=== PATIENT | male | born 1945 | race Caucasian/White ===

== ENCOUNTER 2017-04-07 10:20 | Emergency (ER) | payer OTHER, MEDICARE ==
[2017-04-07 10:28] VITALS: TEMP 98.4
--- NOTE | 2017-04-07 10:46 | EDPHY ---
H & P Time Seen by Provider: 04/07/17 10:31 HPI/ROS: CHIEF COMPLAINT: Cough x3-4 weeks, chest pain onset last night HISTORY OF PRESENT ILLNESS: This is a 71-year-old male presenting to the emergency department complaining of cough times 3-4 weeks intermittent fevers, fever this morning 101.2 did take some ibuprofen resolve the fever. Patient reports intermittent chest pain with deep inspiration yesterday around noon lasting until last night patient went to bed woke up around [id number] then started coughing and having intermittent chest pain with deep inspiration radiating from right side to left side. Patient does report cough is intermittently productive clear. Nonsmoker history of hypertension. Denies any history of [place] or CVA REVIEW OF SYSTEMS: Constitutional: Intermittent fever resolved with ibuprofen no chills. Eyes: No discharge. No blurred vision ENT: No sore throat. Cardiovascular: Intermittent chest wall pain, no palpitations. Respiratory: cough x 3-4 intermittently productive, no shortness of breath. Gastrointestinal: No abdominal pain, no vomiting. Genitourinary: No hematuria. Musculoskeletal: No back pain. Skin: No rashes. Neurological: No headache. Smoking Status: Never smoked Physical Exam: General Appearance: Alert, no distress. HEENT: Normocephalic atraumatic. Pupils equal and round no pallor or injection. Mucous membranes moist. TMs normal bilaterally Respiratory: There are no retractions, lungs clear bilaterally positive cough on exam Cardiovascular: Regular rate and rhythm. Left anterior right anterior chest wall pain on palpation Gastrointestinal: Abdomen is soft and nontender, no masses, bowel sounds normal. Neurological: No focal deficits. All Cranial nerves intact. Answering questions appropriately Skin: Warm and dry, no rashes. Musculoskeletal: Neck is supple nontender. Extremities: symmetrical, full range of motion. Psychiatric: Patient is oriented X 3, there is no agitation. Acting appropriately Constitutional: Initial Vital Signs Temperature (C) 36.9 C 04/07/17 10:23 Heart Rate 99 04/07/17 10:23 Respiratory Rate 20 04/07/17 10:23 Blood Pressure 151/89 H 04/07/17 10:23 O2 Sat (%) 95 04/07/17 10:23 O2 Delivery Mode Room Air Allergies/Adverse Reactions: No Known Allergies Allergy (Unverified 04/07/17 10:29) Home Medications: Medication Instructions Recorded AZITHROMYCIN [Z-PACK] 250 mg PO DAILY #6 tab 04/07/17 Albuterol [Ventolin Hfa Inhaler] 200 puffs IH Q4 #1 mdi 04/07/17 Diovan 04/07/17 predniSONE 40 mg PO DAILY #10 tab 04/07/17 Medical Decision Making - Diagnostics Imaging Results: Imaging Impressions Chest X-Ray 04/07/17 10:42 Impression: Stable negative chest. ED Course/Re-evaluation: Discussed ED plan of care: CBC, BMP, troponin, EKG, chest x-ray 1130: Discussed all results with patient, chest x-ray no acute findings pneumonia. Discharge home---> stable, discussed discharge instructions with patient Differential Diagnosis: Other differential diagnosis considered but not limited to pneumonia, pleural effusion, abnormal EKG and sepsis - Data Points Laboratory Results: Laboratory Results 04/07/17 10:47 04/07/17 10:47 04/07/17 04/07/17 10:47 10:47 WBC 13.13 10^3/uL H 10^3/uL (3.80-9.50) RBC 4.80 10^6/uL 10^6/uL (4.40-6.38) Hgb 15.0 g/dL g/dL (13.7-17.5) Hct 43.7 % % (40.0-51.0) MCV 91.0 fL fL (81.5-99.8) MCH 31.3 pg pg (27.9-34.1) MCHC 34.3 g/dL g/dL (32.4-36.7) RDW 12.0 % % (11.5-15.2) Plt Count 230 10^3/uL 10^3/uL (150-400) MPV 8.7 fL fL (8.7-11.7) Neut % (Auto) 78.2 % H % (39.3-74.2) Lymph % (Auto) 9.7 % L % (15.0-45.0) [place] % (Auto) 11.1 % % (4.5-13.0) Eos % (Auto) 0.2 % L % (0.6-7.6) Baso % (Auto) 0.4 % % (0.3-1.7) Nucleat RBC Rel Count 0.0 % % (0.0-0.2) Absolute Neuts (auto) 10.27 10^3/uL H 10^3/uL (1.70-6.50) Absolute Lymphs (auto) 1.28 10^3/uL 10^3/uL (1.00-3.00) Absolute Monos (auto) 1.46 10^3/uL H 10^3/uL (0.30-0.80) Absolute Eos (auto) 0.02 10^3/uL L 10^3/uL (0.03-0.40) Absolute Basos (auto) 0.05 10^3/uL 10^3/uL (0.02-0.10) Absolute Nucleated RBC 0.00 10^3/uL 10^3/uL (0-0.01) Immature Gran % 0.4 % % (0.0-1.1) Immature Gran # 0.05 10^3/uL 10^3/uL (0.00-0.10) Sodium 140 mEq/L mEq/L (134-144) Potassium 4.3 mEq/L mEq/L (3.5-5.2) Chloride 105 mEq/L mEq/L (97-110) Carbon Dioxide 21 mEq/l L mEq/l (22-31) Anion Gap 14 mEq/L mEq/L (8-16) BUN 21 mg/dL mg/dL (7-23) Creatinine 1.0 mg/dL mg/dL (0.7-1.3) Estimated GFR > 60 Glucose 184 mg/dL H mg/dL (70-100) Calcium 9.2 mg/dL mg/dL (8.5-10.4) Troponin I < 0.012 ng/mL ng/mL (0-0.034) Medications Given: Discontinued Medications Azithromycin (Zithromax) 500 mg PO EDNOW ONE PRN Reason: Protocol Stop: 04/07/17 11:52 Last Admin: 04/07/17 12:14 Dose: 500 mg Departure - Departure Disposition: Home, Routine, Self-Care Clinical Impression: Acute bronchitis Qualifiers: Bronchitis organism: other organism Qualified Code(s): J20.8 - Acute bronchitis due to other specified organisms Condition: Good Instructions: Acute Bronchitis (ED), Bronchospasm (ED) Additional Instructions: 1. Take all medications prescribed 2. You can also take guaifenesin [id number] this will help to liquify any mucus 3. rest. Increase fluid intake 4. Follow up with your primary care provider next week as needed Referrals: Diaz Lyons MD [Primary Care Provider] - As per Instructions Prescriptions: Albuterol [Ventolin Hfa Inhaler] 200 puffs IH Q4 #1 mdi AZITHROMYCIN [Z-PACK] 250 mg PO DAILY #6 tab predniSONE 40 mg PO DAILY #10 tab
--- NOTE | 2017-04-07 10:50 | CPEKG ---
Heart Rate: 94 RR Interval: 638 P-R Interval: 144 QRSD Interval: 98 QT Interval: 316 QTC Interval: 396 P [place]: 74 QRS [place]: 39 T Wave [place]: 37 EKG Severity - BORDERLINE ECG - EKG Impression: SINUS RHYTHM EKG Impression: PROBABLE LEFT ATRIAL ABNORMALITY EKG Impression: LOW VOLTAGE IN FRONTAL LEADS Electronically Signed By: Reen Landa 12-Apr-2017 12:51:43
[2017-04-07 10:56] LABS: % IMMATURE GRANULYOCYTES 0.4 % (0.0-1.1); ABSOLUTE IMMATURE GRANULOCYTES 0.05 10^3/uL (0.00-0.10); ADD DIFF? NO; ADD MORPH? NO; ADD SCAN? NO; ATYPICAL LYMPHOCYTE FLAG 0 (0-99); FRAGMENT RBC FLAG 0 (0-99); HEMATOCRIT 43.7 % (40.0-51.0); LEFT SHIFT FLG 0 (0-99); LIPEMIA HEMOLYSIS FLAG 90 (0-99); MEAN CELL HEMOGLOBIN 31.3 pg (27.9-34.1); MEAN CELL HEMOGLOBIN CONCENTR. 34.3 g/dL (32.4-36.7); MEAN PLATELET VOLUME 8.7 fL (8.7-11.7); PLATELET CLUMPS FLAG 0 (0-99); PLATELET COUNT 230 10^3/uL (150-400)
[2017-04-07 11:07] LABS: ANION GAP 14 mEq/L (8-16); CALCIUM 9.2 mg/dL (8.5-10.4); CARBON DIOXIDE 21 mEq/l (22-31); CHLORIDE 105 mEq/L (97-110); GLOMERULAR FILTRATION RATE > 60; GLUCOSE 184 mg/dL (70-100); POTASSIUM 4.3 mEq/L (3.5-5.2); SODIUM 140 mEq/L (134-144)
[2017-04-07 11:18] LABS: TROPONIN I < 0.012 ng/mL (0-0.034)
[2017-04-07] MEDS ORDERED: AZITHROMYCIN 250 MG TAB PO ONE (11:51)
[2017-04-07 12:14] VITALS: BP 114/67; PULSE 96; RESP 16; O2SAT 94
== END 2017-04-07 12:13 | disposition home or self-care (01) ==
DX: J20.8 Acute bronchitis due to other specified organisms (principal)

== ENCOUNTER → 2017-04-13 | Outpatient (CLI) | payer OTHER, MEDICARE ==
[~2017-04-13] MED LIST: IOPAMIDOL (ISOVUE 370) 100 ML BTL IV ONE
== END ==
LOC: BMCIMAGING 10:46
PROVIDERS: ATTEND Family Medicine
DX: R91.8 Other nonspecific abnormal finding of lung field (principal); R07.89 Other chest pain; R06.89 Other abnormalities of breathing
CPT/HCPCS: 71020; 71275; Q9967

== ENCOUNTER 2017-05-14 13:34 | Emergency (ER) | payer OTHER, MEDICARE ==
--- NOTE | 2017-05-14 14:04 | EDPHY ---
H & P Time Seen by Provider: 05/14/17 13:41 HPI/ROS: CHIEF COMPLAINT: Fell twice 6 days ago HISTORY OF PRESENT ILLNESS: This 71-year-old man has daily cocktail hour. Last week on Sunday he had a drink and then was walking on the hallway and fell down injuring his right side of his face. He said there were some changes in the way he made his drink, and it could have been stronger than usual. He did not lose consciousness and no seizure activity. He then went to the bathroom and sat down in his tended to his facial wound but then when he got up to go back to bed he fell down again on the way back to the bed. Patient does not recall being dizzy or lightheaded. He definitely did not pass out. He denies vertigo and did not specifically feel off balance, he just does not actually know definitively why he fell down. He denies having weakness or numbness in extremities at that time. REVIEW OF SYSTEMS: Eye: no change in vision ENT: no sore throat Cardiac: no chest pain or syncope Pulmonary: no cough or SOB Abdomen: no vomiting, diarrhea, abdominal pain Musculoskeletal: no back pain or neck pain Skin: no rash Neuro: no headache Constitutional: no fever : no urinary symptoms A comprehensive 10 point review of systems is otherwise negative aside from elements mentioned in the history of present illness. PAST MEDICAL HISTORY: Hypertension. Social history: , here with his General Appearance: Alert and conversant, cooperative. Eyes: No scleral icterus. Extraocular motion intact. ENT, Mouth: Normal mucous membranes. Small bruise under his right eye and healing superficial laceration or abrasion on his right eyebrow. Respiratory: Normal respiratory effort, breath sounds equal, lungs are clear to auscultation. Cardiovascular: Regular rate and rhythm. No murmur. No carotid bruit. Gastrointestinal: Abdomen is soft and non tender. Neurological: Alert and oriented x3. Normally conversant. Face symmetric, normal movement and sensation in all extremities. Romberg negative, walks on heels and toes, no pronator drift, [id number] normal bilaterally. Skin: Warm and dry, no rashes. Musculoskeletal: No peripheral edema and no joint swelling. Psychiatric: Not agitated. Emergency Department course/MDM: Chest x-ray personally reviewed, negative. Patient is here primarily because he is concerned that he might have had a TIA 6 days ago. He was reading about it online and presents today for evaluation. 1550: CT reviewed with Dr. Esteban, negative at this time for stroke or intracranial trauma. Results discussed the patient and his . I told him I can't tell for sure whether not he had a TIA but the overall clinical picture I think is less likely to be acute neurologic event such as stroke, and more likely to be related to cocktail hour. I think it is reasonable to discharge him with outpatient follow-up. No neurologic abnormalities now. Sinus rhythm. Smoking Status: Never smoked Constitutional: Initial Vital Signs Temperature (C) 36.8 C 05/14/17 13:40 Heart Rate 83 05/14/17 13:40 Respiratory Rate 16 05/14/17 13:40 Blood Pressure 152/104 H 05/14/17 13:40 O2 Sat (%) 96 05/14/17 13:40 O2 Delivery Mode Room Air Allergies/Adverse Reactions: No Known Allergies Allergy (Unverified 04/07/17 10:29) Home Medications: Medication Instructions Recorded Diovan 04/07/17 Valsartan 05/14/17 Medical Decision Making - Diagnostics EKG Interpretation: 12-lead EKG interpreted by me; official reading is in trace master. My interpretation is sinus rhythm with PVC and low frontal lead voltage. Normal intervals. Imaging Results: Imaging Impressions Head CT 05/14/17 14:03 Impression: There is no acute intracranial abnormality identified on this unenhanced CT evaluation. If there is further clinical concern regarding the patient's symptoms, MR imaging is suggested, if not otherwise contraindicated. Findings were discussed with VIVIAN WHITE MD at 15:41, on 05/14/2017. Chest X-Ray 05/14/17 14:16 Impression: No residual pleural effusion or pneumonia. - Data Points Laboratory Results: Laboratory Results 05/14/17 14:14 05/14/17 14:14 05/14/17 05/14/17 14:14 14:14 WBC 5.52 10^3/uL 10^3/uL (3.80-9.50) RBC 4.52 10^6/uL 10^6/uL (4.40-6.38) Hgb 14.0 g/dL g/dL (13.7-17.5) Hct 40.8 % % (40.0-51.0) MCV 90.3 fL fL (81.5-99.8) MCH 31.0 pg pg (27.9-34.1) MCHC 34.3 g/dL g/dL (32.4-36.7) RDW 13.2 % % (11.5-15.2) Plt Count 155 10^3/uL 10^3/uL (150-400) MPV 9.2 fL fL (8.7-11.7) Neut % (Auto) 47.8 % % (39.3-74.2) Lymph % (Auto) 31.5 % % (15.0-45.0) [place] % (Auto) 15.6 % H % (4.5-13.0) Eos % (Auto) 4.2 % % (0.6-7.6) Baso % (Auto) 0.7 % % (0.3-1.7) Nucleat RBC Rel Count 0.0 % % (0.0-0.2) Absolute Neuts (auto) 2.64 10^3/uL 10^3/uL (1.70-6.50) Absolute Lymphs (auto) 1.74 10^3/uL 10^3/uL (1.00-3.00) Absolute Monos (auto) 0.86 10^3/uL H 10^3/uL (0.30-0.80) Absolute Eos (auto) 0.23 10^3/uL 10^3/uL (0.03-0.40) Absolute Basos (auto) 0.04 10^3/uL 10^3/uL (0.02-0.10) Absolute Nucleated RBC 0.00 10^3/uL 10^3/uL (0-0.01) Immature Gran % 0.2 % % (0.0-1.1) Immature Gran # 0.01 10^3/uL 10^3/uL (0.00-0.10) Sodium 140 mEq/L mEq/L (134-144) Potassium 4.4 mEq/L mEq/L (3.5-5.2) Chloride 107 mEq/L mEq/L (97-110) Carbon Dioxide 21 mEq/l L mEq/l (22-31) Anion Gap 12 mEq/L mEq/L (8-16) BUN 22 mg/dL mg/dL (7-23) Creatinine 1.0 mg/dL mg/dL (0.7-1.3) Estimated GFR > 60 Glucose 103 mg/dL H mg/dL (70-100) Calcium 9.8 mg/dL mg/dL (8.5-10.4) Departure - Departure Disposition: Home, Routine, Self-Care Clinical Impression: Head injury Qualifiers: Encounter type: initial encounter Qualified Code(s): S09.90XA - Unspecified injury of head, initial encounter Facial contusion Qualifiers: Encounter type: initial encounter Qualified Code(s): S00.83XA - Contusion of other part of head, initial encounter Condition: Good Instructions: Head Injury (ED) Referrals: Diaz Lyons MD [Primary Care Provider] - As per Instructions
[2017-05-14 14:07] VITALS: TEMP 98.2
--- NOTE | 2017-05-14 14:21 | CPEKG ---
Heart Rate: 73 RR Interval: 822 P-R Interval: 144 QRSD Interval: 94 QT Interval: 372 QTC Interval: 410 P [place]: 57 QRS [place]: -10 T Wave [place]: 35 EKG Severity - OTHERWISE NORMAL ECG - EKG Impression: SINUS RHYTHM EKG Impression: VENTRICULAR PREMATURE COMPLEX EKG Impression: LOW VOLTAGE IN FRONTAL LEADS Electronically Signed By: Armen Salgado 14-May-2017 14:27:15
[2017-05-14 14:24] LABS: % IMMATURE GRANULYOCYTES 0.2 % (0.0-1.1); ABSOLUTE IMMATURE GRANULOCYTES 0.01 10^3/uL (0.00-0.10); ADD DIFF? NO; ADD MORPH? NO; ADD SCAN? NO; ATYPICAL LYMPHOCYTE FLAG 10 (0-99); FRAGMENT RBC FLAG 0 (0-99); HEMATOCRIT 40.8 % (40.0-51.0); LEFT SHIFT FLG 0 (0-99); LIPEMIA HEMOLYSIS FLAG 90 (0-99); MEAN CELL HEMOGLOBIN CONCENTR. 34.3 g/dL (32.4-36.7); MEAN CELL VOLUME 90.3 fL (81.5-99.8); MEAN PLATELET VOLUME 9.2 fL (8.7-11.7); PLATELET CLUMPS FLAG 0 (0-99); PLATELET COUNT 155 10^3/uL (150-400); RED BLOOD CELL COUNT 4.52 10^6/uL (4.40-6.38); RED CELL DISTRIBUTION WIDTH 13.2 % (11.5-15.2)
[2017-05-14 14:49] LABS: ANION GAP 12 mEq/L (8-16); CALCIUM 9.8 mg/dL (8.5-10.4); CARBON DIOXIDE 21 mEq/l (22-31); CHLORIDE 107 mEq/L (97-110); GLOMERULAR FILTRATION RATE > 60; GLUCOSE 103 mg/dL (70-100); POTASSIUM 4.4 mEq/L (3.5-5.2); SODIUM 140 mEq/L (134-144)
[2017-05-14 16:19] VITALS: BP 135/74; PULSE 77; RESP 16; O2SAT 98
== END 2017-05-14 16:19 | disposition home or self-care (01) ==
DX: S00.83XA Contusion of other part of head, initial encounter (principal); I10 Essential (primary) hypertension; W18.30XA Fall on same level, unspecified, initial encounter; Y92.89 Other specified places as the place of occurrence of the external cause; Y99.8 Other external cause status; Y93.01 Activity, walking, marching and hiking